=== PATIENT | male | born 1975 | race Caucasian/White ===

== ENCOUNTER 2017-08-15 07:09 | Day surgery (SDC) | payer OTHER ==
[~2017-08-15] VITALS: Ht 167.6 cm; Wt 81.7 kg
[2017-08-15 08:12] VITALS: BP 125/79
[2017-08-15] MEDS ORDERED: ULTRAM50 MG PO (11:58)
[2017-08-15 13:22] VITALS: BP 140/82
[2017-08-15 14:22] VITALS: BP 132/80
== END 2017-08-15 14:25 | disposition home or self-care (01) ==
LOC: SDC 07:09
DX: K40.90 Unilateral inguinal hernia, without obstruction or gangrene, not specified as recurrent (principal); R59.0 Localized enlarged lymph nodes; Z87.891 Personal history of nicotine dependence
CPT/HCPCS: 71045; 88305; 93005; C1727; C1781; J0330; J0690; J1100; J1885; J2001; J2250; J2405; J2710; J2795; J3010; J3475; S0020